=== PATIENT | female | born 1965 | race Two or more races ===

== ENCOUNTER 2018-09-04 19:20 | Emergency (ER) | payer MEDICAID ==
[~2018-09-04] VITALS: Ht 162.6 cm; Wt 68.5 kg
[~2018-09-04 19:20] MED LIST: ESOM20CA PO; [UNRECOGNIZED DRUG - CODE] PO; [UNRECOGNIZED DRUG - REMARK]
[2018-09-04 20:25] LABS: BASOPHILS % (AUTO) 0.5 % (0-1); EOSINOPHILS # (AUTO) 0.2 X10'3 (0-0.9); EOSINOPHILS % (AUTO) 2.1 % (0-6); HEMATOCRIT 39.2 % (35.0-45.0); HEMOGLOBIN 13.3 g/dl (12.0-16.0); LYMPHOCYTES % (AUTO) 24.3 % (21-51); MEAN CORPUSCULAR HEMOGLOBIN 27.9 PG (27.0-31.0); MEAN CORPUSCULAR VOLUME 81.8 FL (78-98); MEAN PLATELET VOLUME 7.9 FL (7.4-10.4); MONOCYTES # (AUTO) 0.5 X10'3 (0-0.9); MONOCYTES % (AUTO) 5.8 % (2-12); NEUTROPHILS # (AUTO) 5.5 X10'3 (1.8-7.7); NEUTROPHILS % (AUTO) 67.3 % (42-75); PLATELET COUNT 329 X10'3 (140-440); RED BLOOD COUNT 4.79 X10'6 (4.20-5.60); RED CELL DISTRIBUTION WIDTH 13.9 % (11.5-14.5); WHITE BLOOD COUNT 8.1 X10'3 (4.5-11.0)
[2018-09-04] MEDS ORDERED: LEVE500T PO (20:26)
[2018-09-04 20:35] LABS: ALANINE AMINOTRANSFERASE 26 U/L (12-78); ALBUMIN 4.5 G/DL (3.4-5.0); ALBUMIN/GLOBULIN RATIO 1.2 (1.1-1.5); ALKALINE PHOSPHATASE 98 IU/L (46-116); ANION GAP 9 (8-16); ASPARTATE AMINO TRANSFERASE 17 U/L (10-37); BILIRUBIN,TOTAL 0.3 MG/DL (0.1-1.0); BLOOD UREA NITROGEN 20 MG/DL (7-18); BUN/CREATININE RATIO 18.5 (6.6-38.0); CALCIUM 10.4 MG/DL (8.5-10.1); CHLORIDE 101 MMOL/L (99-107); CREATININE 1.08 MG/DL (0.40-0.90); GLUCOSE 98 MG/DL (70-104); POTASSIUM 4.2 MMOL/L (3.5-5.1); SODIUM 139 MMOL/L (135-145); TOTAL CARBON DIOXIDE 29.4 MMOL/L (24-32); TOTAL PROTEIN 8.3 G/DL (6.4-8.2); eGFR 53 ML/MIN
[2018-09-04 20:38] LABS: PARTIAL THROMBOPLASTIN TIME 28 SECONDS (22-32); TROPONIN I < 0.04 NG/ML (0.0-0.05)
[2018-09-04] MEDS ORDERED: amox tr/potassium clavulanate 875/125mg TAB PO ONE (20:50)
[2018-09-04] MEDS ORDERED: AMOX-580 PO (20:51)
[2018-09-04 21:07] VITALS: BP 155/99
== END 2018-09-04 21:09 | disposition home or self-care (01) ==
LOC: ER 19:21
DX: K11.20 Sialoadenitis, unspecified (principal); E03.9 Hypothyroidism, unspecified
CPT/HCPCS: 36415; 70450; 71045; 80053; 82948; 84484; 85025; 85610; 85730; 93005; 99284

== ENCOUNTER 2024-01-21 22:19 | Emergency (ER) | payer MEDICAID ==
[~2024-01-21] VITALS: Ht 162.6 cm; Wt 69.0 kg
[~2024-01-21 22:19] MED LIST changes: +LEVE500T PO
[2024-01-21 22:20] VITALS: TEMP 97.7
[2024-01-21 23:12] LABS: BASOPHILS # (AUTO) 0.1 X10'3 (0-0.2); BASOPHILS % (AUTO) 0.8 % (0-1); EOSINOPHILS # (AUTO) 0.3 X10'3 (0-0.9); EOSINOPHILS % (AUTO) 4.1 % (0-6); HEMOGLOBIN 13.3 g/dl (12.0-16.0); LYMPHOCYTES # (AUTO) 2.3 X10'3 (1.1-4.8); LYMPHOCYTES % (AUTO) 28.7 % (21-51); MEAN CORPUSCULAR HEMOGLOBIN 28.1 PG (27.0-31.0); MEAN CORPUSCULAR HGB CONC 33.2 g/dL (33.0-36.5); MEAN CORPUSCULAR VOLUME 84.7 FL (78-98); MEAN PLATELET VOLUME 8.1 FL (7.4-10.4); MONOCYTES # (AUTO) 0.4 X10'3 (0-0.9); MONOCYTES % (AUTO) 4.8 % (2-12); NEUTROPHILS % (AUTO) 61.6 % (42-75); PLATELET COUNT 288 X10'3 (140-440); RED BLOOD COUNT 4.73 X10'6 (4.20-5.60); RED CELL DISTRIBUTION WIDTH 14.7 % (11.5-14.5); WHITE BLOOD COUNT 8.1 X10'3 (4.5-11.0)
[2024-01-21 23:26] LABS: ALANINE AMINOTRANSFERASE 28 U/L (12-78); ALBUMIN 4.4 G/DL (3.4-5.0); ALBUMIN/GLOBULIN RATIO 1.4 (1.1-1.5); ALKALINE PHOSPHATASE 102 IU/L (46-116); ANION GAP 6 (8-16); ASPARTATE AMINO TRANSFERASE 19 U/L (10-37); BILIRUBIN,TOTAL 0.3 MG/DL (0.1-1.0); BLOOD UREA NITROGEN 20 MG/DL (7-18); BUN/CREATININE RATIO 17.4 (10.0-20.0); CALCIUM 9.4 MG/DL (8.5-10.1); CHLORIDE 101 MMOL/L (99-107); CREATININE 1.15 MG/DL (0.40-0.90); GLUCOSE 119 MG/DL (70-104); POTASSIUM 3.9 MMOL/L (3.5-5.1); SODIUM 135 MMOL/L (135-145); TOTAL CARBON DIOXIDE 28.4 MMOL/L (24-32); TOTAL PROTEIN 7.6 G/DL (6.4-8.2); eCRCL 47 ML/MIN; eGFR 49 ML/MIN
[2024-01-22 00:14] LABS: BILIRUBIN,URINE NEGATIVE (Neg); CLARITY,URINE CLEAR (Clear); COLOR,URINE STRAW (Yellow); GLUCOSE, URINE NEGATIVE (Neg); KETONES,URINE NEGATIVE (Neg); LEUKOCYTE ESTERASE ,URINE NEGATIVE (Neg); NITRITES, URINE NEGATIVE (Neg); OCCULT BLOOD,URINE TRACE-INTACT (Neg); PROTEIN,URINE NEGATIVE (Neg); UROBILINOGEN,URINE 0.2 E.U/dL (0.2-1.0)
[2024-01-22 00:25] LABS: UA COLLECTION TYPE CLN CATCH MIDSTREAM
[2024-01-22 00:26] LABS: RBC,URINE 0-2 /HPF (0-2); SQUAMOUS EPITHELIAL CELL,UR FEW /LPF (FEW); WBC,URINE 0-4 /HPF (0-4)
[2024-01-22 00:27] LABS: BACTERIA,URINE FEW /HPF (Neg)
[2024-01-22] MEDS: LORazepam 2 mg/ml vial IV ONE (00:44)
[2024-01-22 01:30] VITALS: BP 140/84; PULSE 61; RESP 12; O2SAT 97
== END 2024-01-22 01:44 | disposition home or self-care (01) ==
LOC: ER 22:19
DX: G40.909 Epilepsy, unspecified, not intractable, without status epilepticus (principal); E03.9 Hypothyroidism, unspecified; Z79.899 Other long term (current) drug therapy
CPT/HCPCS: 36415; 70450; 80053; 80177; 81001; 85025; 96374; 99285; J2060; 81003

== ENCOUNTER 2024-12-17 13:52 | Emergency (ER) | payer MEDICAID ==
[~2024-12-17] VITALS: Ht 160 cm; Wt 69.7 kg
[2024-12-17 13:54] VITALS: BP 163/81; PULSE 74; TEMP 97.4; O2SAT 99
--- NOTE | 2024-12-17 15:29 | RADIOLOGY REPORT ---
Indication: pain left knee Technique: DI KNEE LIMITED (AP/LAT)KNEE LTD Comparison: None FINDINGS/IMPRESSION: No radiographic evidence for acute fracture or dislocation. [id number] tricompartmental degenerative joint disease. No significant joint effusion.
[2024-12-17 15:48] VITALS: RESP 16
--- NOTE | 2024-12-17 16:02 | Physician Documentation ---
History of Present Illness ~ Chief Complaint: Knee Pain Stated Complaint: L KNEE PAIN Time Seen by MD: 14:56 Primary Medical Doctor: NO PMD HPI Patient is seen today with complaints of pain of her left knee after she sustained a ground level fall onto her left knee little over a week ago. They state that it seemed to be getting better up until a couple of days ago when it started swelling up more. Patient denies any numbness or tingling of the left lower extremity and has no other concern or complaint at this time. Tetanus witin 5 years: No Medication Reconciliation Allergies: Coded Allergies: No Known Allergies (Unverified , 09/04/18) Scheduled Esomeprazole Mag Trihydrate* (Nexium*), 20 MG PO DAILY Levetiracetam (Levetiracetam), 1.5 TAB PO BID, (Reported) Levothyroxine Sodium (Levothroid), 125 MCG PO DAILY, (Reported) Miscellaneous Medications [Unk Anxiety Med], (Reported) Past Medical History Past Medical History: Hypothyroidism Alcohol Use: None Drug Use: none Review of Systems Constitutional: Denies: chills, fever, weakness Eyes: Denies: pain, blurred vision ENT: Denies: ear pain, nose pain, throat pain, mouth pain Respiratory: Denies: cough, shortness of breath Cardiovascular: Denies: chest pain, palpitations Gastrointestinal: Denies: abdominal pain, nausea, vomiting Genitourinary: Denies: burning, dysuria Female Genitalia: Denies: vaginal discharge, pelvic pain Neurological: Denies: headache, dizziness Musculoskeletal: Denies: pain, swelling Integumentary: Denies: rash, lesions Allergic/Immunologic: Denies: hives, itching Hematologic/Lymphatic: Denies: no symptoms reported Psychiatric: Denies: depression, anxiety Physical Exam Vital Signs: Temperature: 97.4, Source: Temporal, Heart Rate: 74, Respiratory Rate: 16, BP: 163/81, Pulse Oximetry: 99, Weight: 69.700 Oxygen Flow Rate: 0 Physical Exam General: Awake and Alert, no acute distress. HEENT: Conjunctiva pink, Sclera clear, Mucus Membranes moist. Neck: Supple without masses and tenderness. Resp: Unlabored. Lungs clear to auscultation bilaterally. Heart: Regular Rate and rhythm, normal S1 and S2 without murmur, rub or gallop. Musculoskeletal: Patient on exam does have noted swelling of the left knee without erythema and without any warmth. Patient has significant decreased range of motion especially in flexion due to pain. Patient is neurovascularly intact distally. Motor function intact distally Extremities: No cyanosis,clubbing or edema. Skin: Warm and Dry. Progress Results/Orders Results/Orders Orders - MARIA GUADALUPE CONCEPCION Leny SCHWARTZ Knee Limited (Ap/Lat) (12/17/24 15:20) Completed Orders - CONCEPCIONMARIA GUADALUPE Leny SCHWARTZ Knee Limited (Ap/Lat) (12/17/24 15:20) Vital Signs 12/17/24 12/17/24 13:54 15:48 Temp 97.4 Pulse 74 Resp 16 16 B/P (MAP) 163/81 Pulse Ox 99 O2 Flow Rate 0 Medical Decision Making Findings Patient is seen today with complaints of pain of her left knee after she sustained a ground level fall onto her left knee little over a week ago. They state that it seemed to be getting better up until a couple of days ago when it started swelling up more. Patient denies any numbness or tingling of the left lower extremity and has no other concern or complaint at this time. Patient did have x-ray taken of the left knee that shows no sign of acute fracture with tricompartmental degenerative joint disease. Patient will continue Tylenol and ibuprofen as needed for symptomatic relief. Patient will follow up with primary care for referral to media marketing specialist for further eval and treatment. Departure Disposition: HOME / SELF CARE / HOMELESS Impression: Primary Impression: Knee pain Qualified Codes: M25.562 - Pain in left knee Condition: Stable Discharge Instructions: Acute Knee Pain, Adult Additional Instructions: Patient did have x-ray taken of the left knee that shows no sign of acute fracture with tricompartmental degenerative joint disease. Patient will continue Tylenol and ibuprofen as needed for symptomatic relief. Patient will follow up with primary care for referral to media marketing specialist for further eval and treatment. Referrals: NO PRIMARY CARE PROVIDER (PCP) Signature Scribe Signature: No scribe Attestation: No scribe MARIA GUADALUPE CONCEPCION Leny SCHWARTZ Dec 17, 2024 16:02
== END 2024-12-17 16:17 | disposition home or self-care (01) ==
LOC: ER 13:52
DX: M25.562 Pain in left knee (principal); E03.9 Hypothyroidism, unspecified
CPT/HCPCS: 73560; 99283

== ENCOUNTER 2025-01-20 12:32 | Inpatient (IN) | payer MEDICAID ==
[~2025-01-20] VITALS: Ht 172.7 cm; Wt 68.8 kg
[2025-01-20 13:15] LABS: MEAN PLATELET VOLUME 7.5 FL (7.4-10.4); RED CELL DISTRIBUTION WIDTH 14.4 % (11.5-14.5)
--- NOTE | 2025-01-20 13:15 | Physician Documentation ---
History of Present Illness ~ Chief Complaint: Irregular Heartbeat Stated Complaint: HIGH HEART RATE Time Seen by MD: 12:53 OK to notify your PCP?: Yes Primary Medical Doctor: NO PMD Source: patient Mode of Arrival: POV Exam Limitations: no limitations HPI Chief Complaint: Dizziness, rapid heart rate Caveat: Developmental delay Independent Historians: [id number]-[id number] History of Present Illness: Patient is a 59-year-old woman brought in by her tayafs-cm-ich for dizziness that began last evening. Last night and this morning her xsgcap-ld-pdr noticed her heart rate to be in the 130s last night and even higher this morning. Patient isn't complaining of any other symptoms. No history of nausea or vomiting. No abdominal pain. No chest pain, no shortness a breath. Review of systems: All systems were reviewed and are negative except for what is indicated in the history of present illness. Past Medical History: Seizure disorder, hypothyroidism Past Surgical History: Noncontributory Social History: Lives with and cared for by family, no tobacco use, no drug use Medications: Reviewed as documented Nursing Notes Allergies: Reviewed as documented in Nursing Notes Medication Reconciliation Allergies: Coded Allergies: No Known Allergies (Unverified , 01/20/25) Scheduled Levothyroxine Sodium (Levothyroxine Sodium), 1 TAB PO DAILY, (Reported) Zonisamide (Zonisamide), 2 CAP PO HS, (Reported) Miscellaneous Medications [Unk Anxiety Med], (Reported) Discontinued Medications Esomeprazole Mag Trihydrate* (Nexium*), 20 MG PO DAILY Discontinued Reason: patient no longer taking Levetiracetam (Levetiracetam), 1.5 TAB PO BID, (Reported) Discontinued Reason: patient no longer taking Levothyroxine Sodium (Levothroid), 100 MCG PO DAILY, (Reported) Discontinued Reason: patient no longer taking Past Medical History Past Medical History: Hypothyroidism Alcohol Use: None Drug Use: none Review of Systems All Other Systems at this time: Reviewed and Negative Unable to obtain complete ROS: other (Follow up mental delay) Physical Exam Vital Signs: RN Vital Signs have been reviewed: Yes, Temperature: 97.5, Source: Temporal, Heart Rate: 146, Respiratory Rate: 18, BP: 118/85, Pulse Oximetry: 100, Weight: 68.850 Pulse Oximetry Reflects: adequate oxygenation Physical Exam General Appearance: No distress HEENT: Normal OP, moist oral mucosa, PERRL, EOMI Neck: supple, normal ROM, trachea midline Pulmonary: No respiratory distress, CTA, BS equal Cardiac: Tachycardic, regular rhythm, no murmur, rub or gallop, GI: nondistended, soft, nontender, normal bowel sounds, no guarding, no rebound Extremities: normal ROM, no swelling, non-tender Skin: intact, dry, warm, no rashes Neuro: AA, mental status at baseline, speech is clear, no focal motor weakness Psych: normal affect, good eye contact, no apparent hallucination, normal speech Progress Results/Orders Results/Orders Orders - DAVID MILLARD MD Diltiazem-Ns 100mg/100ml (Cardizem-Ns 10 (01/20/25 13:50) Heparin 25,000 Unit/250ml Bag (Heparin 2 (01/20/25 13:50) Heparin 10,000 Unit/Ml 1ml (Heparin 10,0 (01/20/25 13:50) Cbc/Diff (01/21/25 03:00) Cbc/Diff (01/22/25 03:00) Cbc/Diff (01/23/25 03:00) Cbc/Diff (01/24/25 03:00) Cbc/Diff (01/25/25 03:00) Cardiac Ptt (01/20/25 20:23) Page Hospitalist (01/20/25 14:44) Fill Out Med Reconciliation (01/20/25 14:44) Completed Orders - DAVID MILLARD MD CMP (01/20/25 12:54) Diltiazem Iv (Cardizem Iv 5mg/Ml Inj.) (01/20/25 13:50) Pt Inr (01/20/25 13:49) PTT (01/20/25 13:49) Aspirin 81mg Chew Tablet (Aspirin 81mg C (01/20/25 13:50) Ondansetron Inj. (Zofran 4mg/2ml Vial) (01/20/25 14:10) Heparin 10,000 Unit/Ml 1ml (Heparin 10,0 (01/20/25 14:10) Message To Nursing (01/20/25 14:15) Metoprolol Tartrate Inj (Lopressor Iv) (01/20/25 15:00) Medications Received in ER Medications (Trade) Dose Ordered Sig/Jamie Route PRN Reason Start Time Stop Time Status Last Admin Dose Admin Diltiazem HCl 100 ml @ 5 mls/hr Q20H IV 01/20/25 13:50 01/20/25 13:59 5 MLS/HR (Cardizem IV 5mg/ ml inj.) 5 mg ONCE ONCE IV 01/20/25 13:50 01/20/25 13:54 DC 01/20/25 13:59 5 MG Heparin Sodium/ Dextrose 250 ml @ 8 mls/hr [id number] PRN IV TO MAINTAIN PTT WITHIN RANGE 01/20/25 13:50 01/20/25 14:23 8 MLS/HR (aspirin 81MG chew tablet) 324 mg ONCE ONCE PO 01/20/25 13:50 01/20/25 13:53 DC 01/20/25 14:17 324 MG (Zofran 4mg/2ml vial) 4 mg ONCE ONCE IV 01/20/25 14:10 01/20/25 14:11 DC 01/20/25 14:17 4 MG (heparin 10,000 unit/ml 1ml inj) 4,000 units ONCE ONCE IV 01/20/25 14:10 01/20/25 14:11 DC 01/20/25 14:23 4,000 UNITS (Lopressor IV) 5 mg ONCE ONCE IV 01/20/25 15:00 01/20/25 15:01 DC 01/20/25 15:08 5 MG Vital Signs 01/20/25 01/20/25 01/20/25 01/20/25 12:42 13:07 13:11 13:59 Temp 97.5 Pulse 146 160 149 Resp 18 16 14 B/P (MAP) 118/85 118/90 (99) 125/105 Pulse Ox 100 98 O2 Flow Rate 0 01/20/25 01/20/25 01/20/25 13:59 15:08 16:17 Pulse 132 120 130 Resp 12 B/P (MAP) 125/105 130/87 (101) Pulse Ox 97 O2 Flow Rate 0 Laboratory Tests Test 01/20/25 13:04 01/20/25 14:58 01/20/25 16:04 White Blood Count 10.4 Red Blood Count 5.32 Hemoglobin 14.6 Hematocrit 44.8 Mean Corpuscular Volume 84.1 Mean Corpuscular Hemoglobin 27.5 Mean Corpuscular Hemoglobin Concent 32.7 L Red Cell Distribution Width 14.4 Platelet Count 384 Mean Platelet Volume 7.5 Neutrophils (%) (Auto) 69.7 Lymphocytes (%) (Auto) 21.8 Monocytes (%) (Auto) 5.7 Eosinophils (%) (Auto) 1.9 Basophils (%) (Auto) 0.9 Neutrophils # (Auto) 7.3 Lymphocytes # (Auto) 2.3 Monocytes # (Auto) 0.6 Eosinophils # (Auto) 0.2 Basophils # (Auto) 0.1 CBC Comment Prothrombin Time 10.2 INR International Normalized Ratio 1.0 Activated Partial Thromboplast Time 30 Coagulation Comments Sodium Level 140 Potassium Level 4.2 Chloride Level 105 Carbon Dioxide Level 28.6 Anion Gap 6 L Blood Urea Nitrogen 28 H Creatinine 1.06 H Estimated GFR/1.73 m2 53 BUN/Creatinine Ratio 26.4 H Glucose Level 92 Calcium Level 9.3 Total Bilirubin 0.4 Aspartate Amino Transf (AST/SGOT) 21 Alanine Aminotransferase (ALT/SGPT) 30 Alkaline Phosphatase 110 Troponin I High Sensitivity 1106 *H 1064 *H Pro-B-Type Natriuretic Peptide 3192 H Total Protein 7.7 Albumin 4.2 Globulin 3.5 Albumin/Globulin Ratio 1.2 Chemistry Comments Troponin I High Sens Percent Delta 3 Troponin I Hi Sens Absolute Change -42 Medical Decision Making Additional info obtained from: family Findings Differential diagnosis includes but is not limited to: Acute coronary syndrome, atrial flutter, atrial fibrillation, electrolyte abnormalities, pulmonary embolus EKG independent interpretation: Performed at 12:47 p.m.. Atrial flutter, heart rate 162, right bundle-branch block downsloping ST segments Chest x-ray, single view, indication: Tachycardia Independent interpretation: Lungs are clear, normal mediastinum, normal cardiac silhouette Laboratory data independent interpretation: CBC: Unremarkable CMP: Mild increase in BUN of 28 and creatinine 1.06 1st troponin: 1106 2nd troponin: Pro BNP: 3192 Urinalysis: Emergency department course/medical decision-making: Patient presents with rapid AFib/flutter that likely began last evening around 8:00 p.m.. We will plan on synchronized cardioversion. Patient with elevated troponin. We will hold off on synchronized cardioversion for further cardiac workup. IV heparin will be initiated. Patient may be a good candidate for synchronized cardioversion prior to discharge. 2:40 p.m.: Patient re-evaluated. Heparin drip has been initiated and aspirin ordered. Patient also started on Cardizem drip. Patient's heart rate has improved some 124. Patient will need additional Cardizem. We will also order Lopressor IV. Test results and treatment plan reviewed with the patient's crvaqy-xt-jbp. Patient will require admission. Synchronized cardioversion is going to be put on hold until cardiac echo and further workup and heart rate has been slowed. Consultation/communications: 2:57 p.m.: Case discussed with our hospitalist Dr. Miles. He will evaluate her for admission. Differential Dx:Considerations: Include: atrial dysrhythmia, atrial fibrillation, atrial flutter, other Differential Dx:Considerations: Include other (see above) Departure Time of Disposition: 14:41 Disposition: 09 ADMITTED INPATIENT Admitted to Inpatient Unit: to hospitalist Admission Level of Care: PCU with Tele Impression: Primary Impression: Atrial fibrillation and flutter Additional Impression: Elevated troponin Condition: Guarded Referrals: NO PRIMARY CARE PROVIDER (PCP) Education Educated: Patient, Family Educated regarding: diagnosis, treatment Critical Care Note Total Time (mins): 60 Critical Care Note Critical conditions addressed for impending deterioration include: cardiovascular, Associated risk factors involving deterioration include: dysrythmia, The very real possibility of a deterioration of this patient's condition required the highest level of my preparedness for sudden, emergent intervention. I provided critical care services, which included medication orders, frequent reevaluations of the patient's condition and response to treatment, ordering and reviewing test results, and discussing the case with necessary consultants. Critical care time was exclusive of necessary procedure time. The critical care time associated with the care of the patient was 60 minutes. Signature Scribe Signature: No scribe Attestation: No [email or web address] DAVID MILLARD MD Jan 20, 2025 13:15
--- NOTE | 2025-01-20 13:19 | ELECTROCARDIOGRAPH REPORT ---
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
--- NOTE | 2025-01-20 13:23 | RADIOLOGY REPORT ---
EXAM: DI CHEST,SINGLE VIEW Indication: CP Technique: Single frontal view of the chest was obtained Comparison: None FINDINGS: Lines and Tubes: None Lungs: No focal consolidation. Pleura: No effusion. No pneumothorax. Cardiomediastinal contours: Unremarkable Bones: No acute osseous abnormality. IMPRESSION: No acute cardiopulmonary disease.
[2025-01-20 13:40] LABS: CREATININE 1.06 MG/DL (0.40-0.90); PRO BRAIN NATRIURETIC PEPTIDE 3192 PG/ML (0-125); TOTAL CARBON DIOXIDE 28.6 MMOL/L (24-32); eCRCL 58 ML/MIN; eGFR 53 ML/MIN
[2025-01-20] MEDS ORDERED: heparin 10,000 units/1 ML INJ IV ONE (13:50)
[2025-01-20] MEDS: diltiazem-NS 100mg/100ml 100 ML IV SCH (13:59)
[2025-01-20] MEDS: diltiazem 5mg/ml 5ml inj. IV ONE (13:59)
[2025-01-20 14:09] LABS: APTT 30 SECONDS (22-32); INR 1.0 INR
[2025-01-20] MEDS: ondansetron/PF 4mg/2ml inj IV ONE (14:17)
[2025-01-20] MEDS: heparin 25,000 UNIT/250ml bag 250 ML IV PRN (14:23)
[2025-01-20] MEDS: heparin 10,000 units/1 ML INJ IV ONE (14:23)
[2025-01-20] MEDS: MESSAGE TO NURSING IV ONE ×2 (14:25→22:10)
[2025-01-20] MEDS: metoprolol tartrate 1mg/ml inj IV ONE (15:08)
[2025-01-20] MEDS ORDERED: ZONI100C87 PO (15:16)
[2025-01-20] MEDS ORDERED: LEVO100T9 PO (15:16)
[2025-01-20] MEDS ORDERED: magnesium hydroxide 30ml (MOM) UD suspension PO PRN (17:50)
[2025-01-20] MEDS ORDERED: HYDROcodone/acetaminophen 10/325mg tab PO PRN (17:50)
[2025-01-20] MEDS ORDERED: ondansetron/PF 4mg/2ml inj IV PRN (17:50)
[2025-01-20] MEDS ORDERED: HYDROcodone/acetaminophen 5mg/325mg tablet PO PRN (17:50)
[2025-01-20] MEDS ORDERED: magnesium sulf-water 4G/100mL 100 ML IV PRN (17:50)
[2025-01-20] MEDS ORDERED: mag hydrox/Alum hydrox/simeth 30ml oral suspension PO PRN (17:50)
[2025-01-20] MEDS ORDERED: potassium Cl 20 mEq SR tablet PO PRN ×2 (17:50)
[2025-01-20] MEDS ORDERED: potassium Cl 40MEQ/1/2NS 520ml 520 ML IV PRN (17:50)
[2025-01-20] MEDS ORDERED: magnesium sulf-water 2g/50mL 50 ML IV PRN (17:50)
[2025-01-20] MEDS: PERFLUTREN PROTEIN-A MICROSPHR (Optison) 0.22 MG/ML 3ML VIAL IV ONE (18:11)
[2025-01-20] MEDS ORDERED: aminophylline 250mg/10ml inj. IV PRN (19:25)
--- NOTE | 2025-01-20 19:35 | HISTORY AND PHYSICAL ---
History & Physical Providers to CC ~ History of Present Illness Reason for Admit\Complaint: Acute AFib with RVR, NSTEMI, possible acute CHF History of Present Illness This is a 51-year-old developmentally delayed female who has a is accompanied by her ljsqkf-by-qro who is her caregiver and power of collections attorney. The patient last evening became will dizzy and pale and was discovered that her heart rate was in the 130s this is resolved spontaneously however on monitoring the patient today heart rate was in the 130s again however she was asymptomatic. The patient is brought to the ED and was found to be in rapid AFib/a flutter and was started on a diltiazem drip which brought the patient's heart rate down from the one 40s to 120s the patient also had some improvement in heart rate with the IV push of Lopressor 5 mg however the patient's heart rate was up trending again sustained in the 120s thus I started p.o. metoprolol 50 mg x 1. The patient also has a elevated high sensitivity troponins initial high sensitivity troponin was 1106 which has since downtrended in the last troponin is 1040 the patient is has a an elevated proBNP of 3192. The patient is on a heparin drip and a Lexiscan stress test as ordered for tomorrow as well as the patient is admitted to telemetry and echocardiogram is ordered. The patient's supqsk-ea-twq denies the patient is experiencing chest pain. Allergies: Coded Allergies: No Known Allergies (Unverified , 01/20/25) Home Medications Home Medications Active Reported Levothyroxine Sodium 100 Mcg Tablet 1 Tab PO DAILY Zonisamide 100 Mg Capsule 2 Cap PO HS 30 Days [Unk Anxiety Med] Past Medical History Past Medical History Developmentally delayed Seizure disorder Hypothyroidism Past Surgical History Surgical History Comment Hysterectomy bilateral salpingo-oophorectomy secondary to significantly large fibroid Family History Family History: CVA FATHER FH: breast cancer MOTHER FH: diabetes mellitus MOTHER sister Past Social History Social History Comment Patient denes history of smoking/ drinking alcohol nor any illicit drug use. Full Code Status. The patient eats well and has a clean diet. ROS ROS Except for positives in the HPI the rest of the 14 point review systems is negative Exam Vitals: Vital Signs Date Time Temp Pulse Resp B/P (MAP) Pulse Ox O2 Delivery O2 Flow Rate FiO2 01/20/25 19:18 108 12 146/99 (115) 97 0 01/20/25 12:42 97.5 General: Gen. No acute distress alert Lungs clear to ascultation bilaterally, no wheezes rales or rhonchi appreciated Heart irregular rhythm no murmurs rubs or clicks noted Abdomen soft nontender bowel sounds are normoactive Lower extremities no clubbing cyanosis, nor edema appreciated bilaterally Diagnostic Data Last Recorded Lab Results: 01/20/25 1304 01/20/25 1304 Diagnostic Data: Laboratory Tests Test 01/20/25 13:04 Prothrombin Time 10.2 SECONDS (9.0-12.0) INR International Normalized Ratio 1.0 INR Activated Partial Thromboplast Time 30 SECONDS (22-32) Coagulation Comments Problems: (1) Atrial fibrillation and flutter Status: Acute Additional Plan # acute atrial fib/a flutter with rapid ventricular response On a diltiazem drip start metoprolol tartrate Admitted on computer systems technician # myocardial infarction- NSTEMI versus type 2 mi Lexiscan stress test is ordered The patient is chest pain-free Fasting lipid panel is ordered # elevated proBNP without any signs of fluid overload or acute heart failure Echocardiogram # seizure disorder Continue home meds # developmentally delayed I have arranged with case management for the patient's pmtimd-mk-yeb Kathy Winters stay with the patient # hypothyroidism Continue levothyroxine I spent a total of 17 minutes on reviewing various resuscitative measures/ ACP with the patient's POA at the time of admission. The patient is a full code. I spent a total of 40 minutes of critical care time treating this patient on 01/20/2025 Date of Service: Jan 20, 2025 Billing Provider: LUIS HALE DO Common Visit Codes: [id number] CARE 30-74 MIN LUIS HALE DO Jan 20, 2025 19:35
[2025-01-20] MEDS: K and/or MAG REPLACEMENT MC SCH (20:00)
[2025-01-20] MEDS: docusate sod 100mg capsule PO SCH (23:34)
[2025-01-21] VITALS (35 sets, daily range): BP systolic 85–136; BP diastolic 41–99; PULSE 73–122; RESP 10–22; TEMP 97.4–98.3; O2SAT 92–98
[2025-01-21 06:14] LABS: MEAN PLATELET VOLUME 7.7 FL (7.4-10.4); RED CELL DISTRIBUTION WIDTH 14.3 % (11.5-14.5)
[2025-01-21 06:37] LABS: CHOL/HDL RATIO 4.1 (0.00-4.99); CREATININE 0.83 MG/DL (0.40-0.90); LDL CHOLESTEROL 128 MG/DL (50-100); TOTAL CARBON DIOXIDE 23.7 MMOL/L (24-32); eCRCL 75 ML/MIN; eGFR 71 ML/MIN
[2025-01-21] MEDS: MESSAGE TO NURSING IV ONE ×2 (06:44→14:21)
[2025-01-21] MEDS: heparin 10,000 units/1 ML INJ IV PRN (06:46)
[2025-01-21] MEDS: levoTHYROXINE 100mcg tablet PO SCH (07:28)
[2025-01-21] MEDS: digoxin 250mcg/ml 2ml ampule IV ONE ×2 (11:12→15:26)
--- NOTE | 2025-01-21 15:12 | PROGRESS NOTE ---
Daily Progress Note Providers to CC ~ Antibiotic Timeout Antibiotic Ordered?: No Subjective No acute events overnight. Patient examined at bedside. No new complaints, not in acute distress. Patient denies chest pain, sob, palpitations, abdominal pain, n/v/d. Tele aflutter in 110s. TSH 11, FT4 wnl. Serum lytes wnl. No hypoxia. Pending TTE and Nelly. Objective Vital Signs Date Time Temp Pulse Resp B/P (MAP) Pulse Ox O2 Delivery O2 Flow Rate FiO2 01/21/25 11:12 114 01/21/25 08:01 22 96 Room Air 0.0 01/21/25 07:00 97.4 01/21/25 06:58 87/52 (64) Result Diagram: 01/21/25 0554 01/21/25 0544 Physical Exam General: Generalized weakness, Awake and alert, NAD HEENT: Normocephalic, PERRLA Neck: Supple, trachea midline, no JVD Chest: Clear to auscultation bilaterally Cardiovascular: RRR, rapid GI: Soft and nontender Extremities: No cyanosis/clubbing/or edema CORE STICKER: CN II-XII intact, no focal deficits Musculoskeletal: No paraspinal muscle tenderness, no muscle spasm Skin: Warm and intact Coagulation Studies Laboratory Tests Test 01/20/25 13:04 01/21/25 12:56 Prothrombin Time 10.2 SECONDS (9.0-12.0) INR International Normalized Ratio 1.0 INR Activated Partial Thromboplast Time 30 SECONDS (22-32) APTT (Heparin Protocol) 56 SECONDS (45-60) Coagulation Comments Problem\Assessment\Plan Problems/Diagnosis: (1) Atrial fibrillation and flutter Assessment & Plan Atrial fib/aflutter with RVR NSTEMI likely 2/2 above 01/21: tele aflutter in 110s, given digoxin, dilt drip discontinued, start metoprolol tart, pending Lexiscan, TTE Hypothyroidism TSH 11, T4 0.77, home levothyroxine dose adjusted Seizure disorder Developemental delay case management arranged for the patient's bohhem-ys-ger Kathy Parrishngelo stay with the patient Date of Service: Jan 21, 2025 Billing Provider: IRLANDA SEGURA Common Visit Codes: [id number] INP/OBS CARE(HIGH) IRLANDA SEGURA Jan 21, 2025 15:12
[2025-01-21] MEDS: metoprolol tartrate 1mg/ml inj IV PRN (15:26)
[2025-01-21] MEDS: regadenoson 0.4mg/5ml syringe IV PRN (16:51)
[2025-01-21] MEDS: diltiazem-NS 100mg/100ml 100 ML IV SCH (19:16)
[2025-01-21] MEDS ORDERED: diltiazem SR 60mg capsule (twice daily) PO SCH (20:00)
--- NOTE | 2025-01-21 20:45 | RADIOLOGY REPORT ---
Reason for study/Clinical History: Elevated troponins Comparison Study: None Myocardial Perfusion Study with SPECT Technique: The patient received an intravenous injection of 6.5 mCi of technetium-99m Sestamibi while at rest. After a short delay, SPECT tomographic images of the heart were obtained. The patient then went to the stress lab where they received an intravenous Lexiscan utilizing standard protocol. 29.2 mCi of technetium-99m Sestamibi was injected intravenously immediately after the start of the infusion. Gated SPECT tomographic images of the heart were acquired and processed. Findings: Rotating planar images show no significant attenuation artifact. The left ventricular size is within normal limits. Stress tomographic images demonstrate normal perfusion. Resting tomographic images demonstrate a similar pattern. Gated portion of the study shows normal wall motion and myocardial thickening. The left ventricular ejection fraction is 70 %. (normal greater than 50%) Impression: Normal left ventricular size, wall motion, and function, without evidence of infarction or of myocardium at ischemic risk. The left ventricular ejection fraction is 70 %.
[2025-01-22] VITALS (24 sets, daily range): BP systolic 90–128; BP diastolic 54–84; PULSE 96–118; RESP 8–20; TEMP 97.4–98.2; O2SAT 95–98
[2025-01-22 06:58] LABS: CREATININE 0.87 MG/DL (0.40-0.90); TOTAL CARBON DIOXIDE 23.6 MMOL/L (24-32); eCRCL 71 ML/MIN; eGFR 67 ML/MIN
[2025-01-22 07:00] LABS: MEAN PLATELET VOLUME 7.7 FL (7.4-10.4); RED CELL DISTRIBUTION WIDTH 14.1 % (11.5-14.5)
[2025-01-22] MEDS: metoprolol tartrate 1mg/ml inj IV PRN (07:51)
[2025-01-22] MEDS: levoTHYROXINE 112mcg tablet PO SCH (07:51)
[2025-01-22 08:02] LABS: URINE AMPHETAMINE SCREEN NEGATIVE (Neg); URINE BARBITUATE SCREEN NEGATIVE (Neg); URINE BENZODIAZEPINES SCREEN NEGATIVE (Neg); URINE CANNABINOID SCREEN NEGATIVE (Neg); URINE COCAINE SCREEN NEGATIVE (Neg); URINE METHADONE SCREEN NEGATIVE (Neg); URINE OPIATE SCREEN NEGATIVE (Neg); URINE PHENCYCLIDINE SCREEN NEGATIVE (Neg)
--- NOTE | 2025-01-22 16:01 | PROGRESS NOTE ---
Daily Progress Note Providers to CC ~ Antibiotic Timeout Antibiotic Ordered?: No Subjective No acute events overnight. Patient examined at bedside. No new complaints, not in acute distress. Patient denies chest pain, sob, palpitations, abdominal pain, n/v/d. Tele aflutter 90s-100s. TSH 11, FT4 wnl. Serum lytes wnl. No hypoxia. TTE EF of LVEF of 70-75%, RVSP 30mmHg, mildly dilated left atrium, normal right atrium, no significant valvular heart disease. Lexiscan negative. Patient is clinically and hemodynamically stable. Objective Vital Signs Date Time Temp Pulse Resp B/P (MAP) Pulse Ox O2 Delivery O2 Flow Rate FiO2 01/22/25 13:00 104 01/22/25 11:50 97.6 10 104/79 (87) 97 01/22/25 08:31 Room Air 01/22/25 08:10 0.0 Result Diagram: 01/22/2518 01/22/25 0618 Physical Exam General: Generalized weakness, awake and alert, NAD HEENT: Normocephalic, PERRLA Neck: Supple, trachea midline, no JVD Chest: Clear to auscultation bilaterally Cardiovascular: RRR, rapid GI: Soft and nontender Extremities: No cyanosis/clubbing/or edema SUPERVISOR COOLER SERVICE: CN II-XII intact, no focal deficits Musculoskeletal: No paraspinal muscle tenderness, no muscle spasm Skin: Warm and intact Coagulation Studies Laboratory Tests Test 01/20/25 13:04 01/21/25 21:00 Prothrombin Time 10.2 SECONDS (9.0-12.0) INR International Normalized Ratio 1.0 INR Activated Partial Thromboplast Time 30 SECONDS (22-32) APTT (Heparin Protocol) 29 SECONDS (45-60) L Coagulation Comments Problem\Assessment\Plan Problems/Diagnosis: (1) Atrial fibrillation and flutter Assessment & Plan Atrial fib/aflutter with RVR NSTEMI likely 2/2 above 01/21: tele aflutter in 110s, given digoxin, diltiazem drip, started metoprolol tart, pending Lexiscan, TTE 01/22: TTE EF of LVEF of 70-75%, RVSP 30mmHg, mildly dilated left atrium, normal right atrium, no significant valvular heart disease. Lexiscan negative. Diltiazem drip, metoprolol tart, amiodarone Hypothyroidism TSH 11, T4 0.77, home levothyroxine dose adjusted Seizure disorder Developemental delay case management arranged for the patient's [id number] Kathy Winters stay with the patient DVT/VTE Prophylaxis: Eliquis Code Status: Full Code Date of Service: Jan 22, 2025 Billing Provider: IRLANDA SEGURA Common Visit Codes: [id number] INP/OBS CARE(HIGH) IRLANDA SEGURA Jan 22, 2025 16:01
--- NOTE | 2025-01-22 18:44 | CARDIOLOGY REPORT ---
APPROVED REPORT EXAM: Comprehensive 2D, Doppler, and color-flow Echocardiogram. Patient Location: [address] Blood Pressure: 124/57 mmHg Heart Rate: 120 bpm Rhythm: SINUS Indications CONGESTIVE HEART FAILURE ELEVATED PROBNP (3192) HS TROPONIN 1106, 1064, 1040 ATRIAL FIBRILLATION / ATRIAL FLUTTER Cell Biologist: none Previous echo: none 2D Dimensions IVSd 1.1 (0.7-1.1cm) LVDd 3.6 cm PWd 1.1 (0.7-1.1cm) IVSs 1.3 (0.8-1.2cm) LVDs 2.8 (2.5-4.0cm) PWs 1.5 (0.8-1.2cm) LVOT Diameter 1.96 (1.8-2.4cm) FS (%) 24.2 % SV 27.3 ml CO 3.3 L/min M-Mode Dimensions Left Atrium(MM) 4.84 (2.5-4.0cm) Aortic Root 2.56 (2.2-3.7cm) Aortic Cusp Exc 1.76 (1.5-2.0cm) Aortic Valve AoV Peak Marlon. 132.9 cm/s AoV VTI 18.4 cm AO Peak GR. 7.1 mmHg AO Mean GR. 4 mmHg LVOT VTI 13.68 cm LVOT Peak Marlon. 92.6 cm/s KAYDEN(VTI)/BSA 1.93 cm2/m2 KAYDEN (VTI) 1.93 cm2 AV DI 0.74 % Mitral Valve MV Peak Gr. 4 mmHg MV PHT 40 ms MVA (PHT) 5.50 cm2 MV VMax 101.9 cm/s Tricuspid Valve TR P. Velocity 224 cm/s RAP ESTIMATE 10 mmHg TR Peak Gr. 20 mmHg RVSP 30 mmHg LEFT VENTRICLE Hypovolemic LV size and wall thickness. Overall systolic function is hyperdynamic. LVEF is 70-75%. RIGHT VENTRICLE RV appears normal size and function. ATRIA LA appears at least mildly dilated. RA appears normal in size. AORTIC VALVE Trileaflet AV appears mildly sclerotic without stenosis. Mild insufficiency. MITRAL VALVE Mild MV annular calcification without stenosis. Trace regurgitation. TRICUSPID VALVE TV appears structurally normal with trace regurgitation. PULMONIC VALVE Normal PV without stenosis, physiologic insufficiency. GREAT VESSELS Aortic root is normal in size. PERICARDIUM Trivial anterior pericardial effusion without hemodynamic compromise. Other Information Study Quality: Adequate Conclusion Hypovolemic LV size and wall thickness. Overall systolic function is hyperdynamic. LVEF is 70-75%. RV appears normal size and function. LA appears at least mildly dilated. RA appears normal in size. Trileaflet AV appears mildly sclerotic without stenosis. Mild insufficiency. Mild MV annular calcification without stenosis. Trace regurgitation. TV appears structurally normal with trace regurgitation. Trivial anterior pericardial effusion without hemodynamic compromise.
[2025-01-23 04:09] VITALS: BP 95/54; PULSE 87; RESP 20; TEMP 97; O2SAT 97
[2025-01-23 06:00] VITALS: BP 103/57; PULSE 67; RESP 12; TEMP 97.1; O2SAT 98
[2025-01-23 07:39] LABS: MEAN PLATELET VOLUME 7.8 FL (7.4-10.4); RED CELL DISTRIBUTION WIDTH 14.2 % (11.5-14.5)
[2025-01-23] MEDS: diltiazem SR 60mg capsule (twice daily) PO SCH (07:45)
[2025-01-23 08:00] VITALS: RESP 12; O2SAT 98
[2025-01-23] MEDS ORDERED: diltiazem SR 60mg capsule (twice daily) PO SCH ×2 (08:00→20:00)
[2025-01-23] MEDS ORDERED: CARSR60C PO (08:01)
[2025-01-23] MEDS ORDERED: AMIO200T76 PO (08:01)
[2025-01-23] MEDS ORDERED: APIX5TAB3 PO (08:01)
[2025-01-23] MEDS ORDERED: LEVO112T5 PO (08:01)
[2025-01-23] MEDS ORDERED: METO50TA16 PO (08:01)
[2025-01-23 08:09] LABS: CREATININE 1.16 MG/DL (0.40-0.90); TOTAL CARBON DIOXIDE 24.9 MMOL/L (24-32); eCRCL 53 ML/MIN; eGFR 48 ML/MIN
[2025-01-23 11:00] VITALS: BP 95/52; PULSE 92; RESP 15; TEMP 97.8; O2SAT 97
--- NOTE | 2025-01-23 11:31 | DISCHARGE SUMMARY ---
Discharge Summary Providers to CC ~ Discharge Summary Admission Diagnosis: afib rvr, Type II AL Hospital Course DATE OF ADMISSION: 01/20/25 DATE OF DISCHARGE: 01/23/25 Discharge Diagnosis\\Comment: Atrial fib/aflutter with RVR Tachyarrhythmia NSTEMI likely 2/2 above Hypothyroidism Seizure disorder Developemental delay Operations\\Procedures: None Consultants: None Complications: None Condition on DC: Stable New Medications: Diltiazem Hcl SR* (Cardizem SR*) 60 Mg Cap.sr.12h 1 CAP PO Q12H for 30 Days, #120 CAP Amiodarone Hcl (Cordarone) 200 Mg Tablet 200 MG PO BID for 30 Days, #44 TAB Take 1 tablet by mouth every 12 hours x 2 weeks, then take 1 tablet by mouth once daily thereafter. Apixaban (Eliquis) 5 Mg Tablet 5 MG PO BID for 30 Days, #60 TAB Levothyroxine Sodium (Levothyroxine Sodium) 112 Mcg Tablet 112 MCG PO DAILY@07 for 90 Days, #90 TAB Metoprolol Tartrate (Metoprolol Tartrate) 50 Mg Tablet 50 MG PO BID for 30 Days, #60 TAB Continued Medications: [Unk Anxiety Med] () Zonisamide (Zonisamide) 100 Mg Capsule 2 CAP PO HS for 30 Days, #30 CAP 0 Refills Discontinued Medications: Levothyroxine Sodium (Levothyroxine Sodium) 100 Mcg Tablet 1 TAB PO DAILY Discharge Summary: History of Present Illness From H&P: "This is a 51-year-old developmentally delayed female who has a is accompanied by her [id number] who is her caregiver and power of city attorney. The patient last evening became will dizzy and pale and was discovered that her heart rate was in the 130s this is resolved spontaneously however on monitoring the patient today heart rate was in the 130s again however she was asymptomatic. The patient is brought to the ED and was found to be in rapid AFib/a flutter and was started on a diltiazem drip which brought the patient's heart rate down from the one 40s to 120s the patient also had some improvement in heart rate with the IV push of Lopressor 5 mg however the patient's heart rate was up trending again sustained in the 120s thus I started p.o. metoprolol 50 mg x 1. The patient also has a elevated high sensitivity troponins initial high sensitivity troponin was 1106 which has since downtrended in the last troponin is 1040 the patient is has a an elevated proBNP of 3192. The patient is on a heparin drip and a Lexiscan stress test as ordered for tomorrow as well as the patient is admitted to telemetry and echocardiogram is ordered. The patient's [id number] denies the patient is experiencing chest pain." Hospital Course Diagnostic findings were notable for elevated troponin and flat series in 1100s, EKG revealing atrial flutter, heart rate 162, right bundle-branch block downsloping ST segments. Pertinent negative findings were negative chest x-ray, elevated TSH with wnl FT4, unremarkable serum lytes, no fever, no hypoxia. Patient was started on heparin drip and diltiazem drip. A subsequent Lexiscan resulted negative. TTE revealed LVEF of LVEF of 70-75%, RVSP 30mmHg, mildly dila isidoro left atrium, normal right atrium, no significant valvular heart disease. A diltiazem drip was transitioned into oral sharon blockers. Patient did not experience further complications throughout the entire hospital stay and remained clinically and hemodynamically stable. Patient was seen and examined on the day of discharge. On day of discharge, vss and labs unremarkable. Telemetry remained afib/flutter in 60s to 90s. All labs, diagnostic workups, discharge plan discussed with patient's [id number] Kathy Winters at bedside in details during visit before discharge. All questions and concerns answered to the best of my professional knowledge. Patient is to be discharged to home to self and to follow-up with PCP and outpatient mounter brass wind instruments within 2 weeks. Physical Exam General: Generalized weakness, awake and alert, oriented x1, NAD HEENT: Normocephalic, PERRLA Neck: Supple, trachea midline, no JVD Chest: Clear to auscultation bilaterally Cardiovascular: IRIR GI: Soft and nontender Extremities: No cyanosis/clubbing/or edema TALENT SPECIALIST: CN II-XII intact, no focal deficits Musculoskeletal: No paraspinal muscle tenderness, no muscle spasm Skin: Warm and intact *Problems/Diagnosis: (1) Atrial fibrillation and flutter Status: Acute Total Time Spent on D/C: > 30 Minutes Date of Service: Jan 23, 2025 Billing Provider: IRLANDA SEGURA Common Visit Codes: [id number] DISCH DAY >30min IRLANDA SEGURA Jan 23, 2025 11:31
== END 2025-01-23 11:07 | disposition home health service (06) | DRG 190 ==
LOC: ER 12:33 → ED HOLD 18:02 → UNDOADMIN 18:29 → ED HOLD 18:29 → PCU 3S 01-21 00:57 → ED HOLD 01-21 00:57
PROVIDERS: ADMIT Family Medicine; ATTEND Family Medicine
PROC: 4A02XM4 Measurement of Cardiac Total Activity, External Approach (ICD-10-PCS; principal; 2025-01-21)
PROC: 3E033HZ Introduction of Radioactive Substance into Peripheral Vein, Percutaneous Approach (ICD-10-PCS; 2025-01-21)
DX: I21.4 Non-ST elevation (NSTEMI) myocardial infarction (principal); I48.92 Unspecified atrial flutter; I48.91 Unspecified atrial fibrillation; E03.9 Hypothyroidism, unspecified; G40.909 Epilepsy, unspecified, not intractable, without status epilepticus; Z79.01 Long term (current) use of anticoagulants; Z79.899 Other long term (current) drug therapy; Z90.710 Acquired absence of both cervix and uterus; Z87.891 Personal history of nicotine dependence; Z83.3 Family history of diabetes mellitus
CPT/HCPCS: 36415; 71045; 78452; 80053; 80061; 80305; 83036; 83735; 83880; 84439; 84443; 84484; 85025; 85610; 85730; 87081; 93005; 93017; 93306; 96365; 96375; 99285; A6258; A9500; G0378; J1160; J1644; J2405; J2785; J3490; J7030; J7040